=== PATIENT | male | born 1955 | race Caucasian/White ===

== ENCOUNTER 2017-10-22 05:49 | Day surgery (SDC) | payer BC ==
[2017-10-22] VITALS (10 sets, daily range): BP systolic 94–139; BP diastolic 63–88; PULSE 53–73; TEMP 97.8–98.7
[~2017-10-22] VITALS: Ht 183 cm; Wt 99.0 kg
[2017-10-22 06:31] LABS: HEMATOCRIT 44.2 % (42.0-52.0); HEMOGLOBIN 14.5 g/dl (13.5-18.0); MEAN CELL VOLUME 89 fl (80.0-100.0); MEAN CORPUSCULAR HEMOGLOBIN 29 pg (27.0-31.0); MEAN CORPUSCULAR HGB CONC 33 g/dl (33.0-37.0); MEAN PLATELET VOLUME 10.4 fl (7.4-10.4); PLATELET COUNT 272 K/mm3 (130-400); RED BLOOD COUNT 4.96 M/mm3 (4.20-5.60); REDCELL DISTRIBUTION WIDTH-CV 13.5 % (11.5-14.5)
[2017-10-22 06:37] LABS: PROTHROMBIN TIME 11.7 SECONDS (9.7-12.8)
[2017-10-22] MEDS ORDERED: ELIQUIS 5MG PO (06:37)
[2017-10-22] MEDS ORDERED: LANOXIN 0.25M0.25 MG PO (06:38)
[2017-10-22 06:41] LABS: CALCIUM 10.2 mg/dL (8.4-10.2); CREATININE, serum 1.05 mg/dL (0.66-1.25); POTASSIUM 4.3 mmol/L (3.4-5.0)
== END 2017-10-22 12:14 | disposition home or self-care (01) ==
LOC: COL.CAR 05:49
PROVIDERS: Internal Medicine Interventional Cardiology
DX: I25.10 Atherosclerotic heart disease of native coronary artery without angina pectoris (principal); R94.39 Abnormal result of other cardiovascular function study; J44.9 Chronic obstructive pulmonary disease, unspecified; I48.0 Paroxysmal atrial fibrillation; M79.604 Pain in right leg; M79.605 Pain in left leg; R55 Syncope and collapse; F17.210 Nicotine dependence, cigarettes, uncomplicated
CPT/HCPCS: J2250; J3010; Q9967

== ENCOUNTER → 2020-06-05 | Outpatient (CLI) | payer BC ==
[~2020-06-05] MED LIST: ELIQUIS 5MG PO; LANOXIN 0.25M0.25 MG PO
== END ==
LOC: COL.RAD 12:30
DX: M25.511 Pain in right shoulder (principal)
CPT/HCPCS: J3301; Q9967